=== PATIENT | male | born 1965 | race Two or more races ===

== ENCOUNTER 2016-09-19 21:55 | Inpatient (IN) | payer OTHER ==
--- NOTE | ~2016-09-19 | DS ---
Unit #: [id number] #: [id number] Patient: SHONA MEJIA [id number] [address] [address] [id number] I MR#: [id number] NAME: SHONA MEJIA ROOM: 229 Age: 51 Sex: M Admission Date: 09/20/2016 : 1965 Discharge Date: 09/21/2016 Attending Physician: Sigifredo España M.D. Primary Care Physician: No Primary Care Physician DISCHARGE SUMMARY DISCHARGE DIAGNOSES 1. Escherichia coli urinary tract infection sensitive to cephalosporin. 2. Sepsis present on admission secondary to the urinary tract infection. 3. Remote cerebrovascular accident with no focal deficits. 4. Resolved hyponatremia and hypokalemia. 5. Tobacco usage. 6. Gross hematuria. I am recommending that he follow this up outpatient. PROCEDURES None. DIAGNOSTIC STUDIES IMAGING: Consists of CT abdomen and pelvis with impression: CT findings suspicious for cystitis. Not mentioned in the body of the report, there is subtle thickening and enhancement of the right renal pelvis and proximal right ureter urothelium. Findings may represent changes of pyelitis and ureteritis. No obstructing abnormality is seen. Bilateral renal cysts. Small hepatic cysts. Trace right pleural effusion. Normal appendix. LABORATORY: Labs include BMP: Glucose 114, BUN 11, creatinine 0.6, sodium 145, potassium 4, chloride 107, CO2 27, and calcium 8.7. CBC: WBC 7. RBC 3.78, hemoglobin 11.6, hematocrit 34.7, MCV is 91.8, MCH is 30.6, MCHC 33.3, RDW is 12.4, platelets are 201, and MPV is 9.6. HOSPITAL COURSE Patient is a pleasant 51-year-old, Yakut-speaking only male with past medical history of remote CVA as well as tobacco usage who presented to the emergency department with 4-day symptoms of nausea, vomiting, and right lower quadrant pain and headache. He has been experiencing dysuria, frequency, and a small amount of hematuria as well. Presented to the emergency department the evening prior to admission with fever. Urinalysis revealed significant hematuria and pyuria. Therefore, a CT scan was performed consistent with cystitis, but also had some subtle thickening of the right renal pelvis and proximal right ureter consistent with pyelonephritis. In the emergency department, he was treated with Tylenol and Rocephin, bolused with IV fluids, given Zofran and morphine, and had noted a change in his urinary stream, but still had difficulty voiding. He was treated for UTI with sepsis with fever and tachycardia. The following day, he was seen. He still had symptoms of dysuria. Flomax was started and the morning after that tells me that all of his urinary symptoms are fine. He denies any abdominal pain. Had resolved nausea and vomiting and he was ready to be discharged home. With regards to his gross hematuria, we did not check a BPA. I recommend that patient do this Unit #: [id number] #: [id number] Patient: SHONA MEJIA outpatient. I am discharging him with a month's worth of Flomax to be continued at followup if needed and his urine culture did grow E. coli sensitive to cephalosporin. Will be discharging him with Omnicef 300 mg orally twice daily for the next 5 days. DISCHARGE CONDITION Stable. DISCHARGE INSTRUCTIONS 1. I am giving him a card for Dr. Georges due to his no PCP state at this time and instructed him that he could follow up with him on [facility] before 2 o'clock as a walk-in appointment. 2. Discharge diet: Resume a heart healthy diet. 3. Stressed cessation from tobacco. 4. Resume activities as prior to hospitalization with ambulating every day. DISCHARGE MEDICATIONS Consist of: 1. Flomax 0.4 mg orally at bedtime. Prescription for 30 days was given. 2. Omnicef 300 mg orally twice daily for the next 5 days. Dictated by... Judy Jefferson PA-C for Jona Carter/radha TD: 09/22/2016 05:32 JOB #: [id number] Katie Georges MD -- [facility] DISCHARGE SUMMARY X X DISCHARGE SUMMARY
--- NOTE | ~2016-09-19 | CT2 ---
[facility] A Service of [facility] RADIOLOGY TEXT RESULTS PATIENT: SHONA MEJIA LOCATION: [facility] : [birth year] UNIT #: [id number] AGE: [address]: Sigifredo España MD SEX: M ORDER DR: [id number] [facility]. [place], [place] [address] [id number] MR#: [id number] Acc #: [id number] NAME: SHONA MEJIA : 1965 SEX: M STUDY DATE/TIME: 09/19/2016 22:09 UNIT: [facility] ROOM: 229 STUDY DESCRIPTION: CT Abd and Pelv W Cont Attending Physician: Sigifredo España M.D. Ordering Physician: Justice Mcclain M.D. Primary Care Physician: Primary Care Physician No MEDICAL IMAGING REPORT This report is preliminary unless electronic signature is present EXAM CT abdomen and pelvis with contrast 09/19/2016 HISTORY 51-year-old male, bleeding, dysuria for 4 days. Hernia. Previous transient ischemic attack. COMPARISON None. TECHNIQUE This CT examination was performed with one or more of the following radiation dose reduction techniques: automatic exposure control, adjustment of mA and/or kV according to patient size, and iterative reconstruction. PROCEDURE 5 mm noncontrast axial images through the abdomen and pelvis. Enteric contrast was not administered. FINDINGS ABDOMEN: Trace right pleural effusion is present. No basilar consolidations are seen. 2 low-density lesions in the left hepatic lobe are nonspecific but favored to represent cysts. Bilateral renal cysts are present. The adrenals, spleen, pancreas and gallbladder are within normal limits. Limited evaluation of bowel due to lack of enteric contrast but no focal bowel wall thickening or inflammation is seen. The appendix is normal. PELVIS: There is very mild concentric urinary bladder wall thickening raising the possibility of cystitis. Subtle perivesical fat stranding is thought to be present, as well. Coarse calcifications are seen within the prostate gland without significant prostatic enlargement. No pelvic [facility] A Service [facility] RADIOLOGY TEXT RESULTS PATIENT: SHONA MEJIA [id number] : [birth year] UNIT #: [id number] AGE: [address]: Sigifredo España MD SEX: M ORDER DR: adenopathy or free fluid is seen. IMPRESSION 1. CT findings suspicious for cystitis. 2. Not mentioned in the body of the report, there is subtle thickening and enhancement of the right renal pelvis and proximal right ureter urothelium. Findings may represent changes of pyelitis and ureteritis. No obstructing abnormality is seen. 3. Bilateral renal cysts. Small hepatic cysts. 4. Trace right pleural effusion. 5. Normal appendix. Dictated by... Alison Castaneda M.D. THIS IS AN ELECTRONICALLY VERIFIED REPORT Alison Castaneda M.D. at 09/20/2016 2:09 PM WESLEY/krysten TD: 09/20/2016 10:02 JOB #: [id number] MEDICAL IMAGING REPORT COPY
--- NOTE | ~2016-09-19 | HP ---
Unit #: [id number] #: [id number] Patient: SHONA MEJIA [id number] [address] [place], [place] [address] [id number] I MR#: [id number] NAME: SHONA MEJIA ROOM: 229 Age: 51 Sex: M Admission Date: 09/20/2016 : 1965 Attending Physician: Jazzmine Sabillon M.D. Primary Care Physician: No Primary Care Physician HISTORY AND PHYSICAL CHIEF COMPLAINT Pyelonephritis with nausea and vomiting. HISTORY This pleasant 51-year-old male with possible remote CVA, is admitted for pyelonephritis. The patient was well until four days prior to admission when he developed nausea, vomiting, fever, right lower quadrant pain, headache. He has been experiencing dysuria, frequency, and a small amount of hematuria as well. Presented to this emergency department last evening with a fever. Urinalysis revealed significant hematuria and pyuria. Therefore, a CT scan was performed consistent with cystitis but also had some subtle thickening of the right renal pelvis and proximal right ureter consistent with pyelonephritis. In the ER, he was treated with Tylenol, Rocephin, bolused with IV fluids, given Zofran and morphine. Does note a change in his urinary stream and difficulty voiding recently. PAST MEDICAL HISTORY Possible CVA with some transient short term memory issues, now resolved. ALLERGIES None. HOME MEDICATIONS None. FAMILY HISTORY Negative for kidney disease. SOCIAL HISTORY The patient is originally from [facility], living with his and family. He smokes one half pack per day of tobacco but hasn't smoked for the past four days. Does not drink alcohol. REVIEW OF SYSTEMS Notable for a small amount of hematuria, dysuria, urinary voiding problems, headache, fever, nausea, vomiting, right lower quadrant discomfort, questionable previous CVA. All other systems were reviewed and are negative. PHYSICAL EXAMINATION GENERAL APPEARANCE: Pleasant, thin, 51-year-old male, currently in no acute distress. Unit #: [id number] #: [id number] Patient: SHONA MEJIA VITAL SIGNS: Temperature 101.8, pulse 112, respirations 16, blood pressure 116/70. O2 saturation is 100% on room air. HEENT: Eyes PERRLA. Extraocular muscles are intact. Pharynx is benign. NECK: Supple without adenopathy or thyromegaly. CHEST: Clear. Right CVA percussion tenderness noted. CARDIAC: Normal S1 and S2 without S3, S4 or murmur. ABDOMEN: Bowel sounds are present. The patient has suprapubic tenderness, and right lower quadrant tenderness without rebound or guarding. No hepatosplenomegaly or masses. EXTREMITIES: Without clubbing, cyanosis or edema. Pedal pulses are present. No splinter hemorrhages noted over the fingernail beds. NEUROLOGIC EXAM: The patient is awake, alert, oriented. Cranial nerves are intact. Equal strength throughout. DIAGNOSTIC STUDIES LABORATORY: Admission labs - hematocrit 37, normal white count and platelet count. SMA-12 - sodium 133, potassium 3.4, chloride is 98, albumin is 3, alkaline phos. 98. Normal lipase and lactic acid. Urinalysis - positive leukocyte esterase, nitrates, protein, 3+ blood with 100 to 200 red cells, innumerable white cells, 4+ bacteria. IMAGING: CT scan consistent with cystitis and pyelonephritis. Renal and hepatic cysts noted. ASSESSMENT 1. Pyelonephritis with nausea and vomiting. 2. Mild hyponatremia and hypokalemia. 3. Prior cerebrovascular accident without residual symptoms. 4. Tobacco use. PLANS 1. Rocephin, one dose of vancomycin pending cultures. 2. IV fluids. 3. Check postvoid bladder scan and start Flomax. 4. SCDs for DVT prophylaxis. 5. Repeat labs in the morning. Dictated by Jazzmine Sabillon M.D. AML/df TD: 09/20/2016 05:22 JOB #: [id number] Unit #: [id number] #: [id number] Patient: STORADHA,AFRIM HISTORY AND PHYSICAL X Jazzmine Sabillon MD X HISTORY AND PHYSICAL
[2016-09-19 18:02] LABS: URINE SOURCE CLEAN CATCH
[2016-09-19 18:05] LABS: URINE APPEARANCE TURBID; URINE BILIRUBIN NEG (NEG); URINE BLOOD 3+ (NEG); URINE COLOR YELLOW; URINE GLUCOSE NEG (NEG); URINE KETONE NEG (NEG); URINE LEUKOCYTE ESTERASE 3+ (NEG); URINE NITRATE POS (NEG); URINE PH 5.5 (5-8); URINE PROTEIN 2+ (NEG); URINE SPECIFIC GRAVITY 1.019 (1.003-1.035)
[2016-09-19 18:07] LABS: CULTURE INDICATED? YES; URBCS1 AUWI 100-200 /[HPF] (0-2); URINE BACTERIA AUWI 4+ (NEGATIVE); URINE SQUAMOUS EPITHELIAL CELL NONE SEEN /[HPF]; UWBCS1 AUWI INNUM (0-5)
[2016-09-19 20:17] LABS: BASOPHIL% 0.4 % (0-2.5); EOSINOPHIL# 0.1 X10e3 (0-0.7); EOSINOPHIL% 0.9 % (0.0-7.0); HEMOGLOBIN 12.7 gm/dL (13.0-16.0); LYMPHOCYTE# 1.7 X10e3 (1.0-3.5); LYMPHOCYTE% 19.3 % (17.0-45.0); MEAN CELL VOLUME 89.9 FL (83-96); MEAN CORPUSCULAR HEMOGLOBIN 30.8 PG (28-34); MEAN CORPUSCULAR HGB CONC 34.3 g/dL (30-36); MEAN PLATELET VOLUME 9.1 FL (6.5-11.5); MONOCYTE# 1.5 X10e3 (0-1.0); MONOCYTE% 17.3 % (3.0-12.0); NEUTROPHIL# 5.5 X10e3 (1.5-7.1); NEUTROPHIL% 62.1 % (40-75); PLATELET COUNT 186 X10e3 (140-420); RED BLOOD COUNT 4.11 X10e (3.90-5.60); RED CELL DISTRIBUTION WIDTH 12.3 % (11.0-15.5); WHITE BLOOD COUNT 8.9 X10e3 (4.0-10.5)
[2016-09-19 20:19] LABS: DIFF IND NO
[2016-09-19 20:46] LABS: ALKALINE PHOSPHATASE 98 U/L (32-92); ALT (SGPT) 25 U/L (10-40); AMYLASE 17 U/L (0-46); AST (SGOT) 27 U/L (10-42); BILIRUBIN, DIRECT 0.1 mg/dL (0.0-0.2); BILIRUBIN,INDIRECT 0.5 mg/dL (0.0-0.9); BILIRUBIN,TOTAL 0.6 mg/dL (0.2-2.0); BLOOD UREA NITROGEN 13 mg/dL (9-23); BUN/CREATININE RATIO 18.57; CALCIUM SERUM 8.4 mg/dL (8.4-10.2); CARBON DIOXIDE 25 mmol/L (22-31); CHLORIDE 98 mmol/L (100-111); CREATININE SERUM 0.7 mg/dL (0.6-1.4); GLOM FILT RATE Estimated ABOVE60 mL/min (>60); GLUCOSE FASTING 108 mg/dL (70-110); LIPASE 16 U/L (22-51); POTASSIUM 3.4 mmol/L (3.5-5.1); PROTEIN TOTAL SERUM 6.7 g/dL (6.0-8.3); SODIUM 133 mmol/L (135-145)
[2016-09-20 06:47] LABS: BASOPHIL% 0.5 % (0-2.5); EOSINOPHIL# 0.3 X10e3 (0-0.7); EOSINOPHIL% 3.4 % (0.0-7.0); HEMATOCRIT 34.6 % (38.0-50.0); HEMOGLOBIN 11.7 gm/dL (13.0-16.0); LYMPHOCYTE# 1.5 X10e3 (1.0-3.5); LYMPHOCYTE% 17.7 % (17.0-45.0); MEAN CELL VOLUME 90.9 FL (83-96); MEAN CORPUSCULAR HEMOGLOBIN 30.8 PG (28-34); MEAN CORPUSCULAR HGB CONC 33.8 g/dL (30-36); MEAN PLATELET VOLUME 8.8 FL (6.5-11.5); MONOCYTE# 1.6 X10e3 (0-1.0); MONOCYTE% 19.8 % (3.0-12.0); NEUTROPHIL# 4.8 X10e3 (1.5-7.1); NEUTROPHIL% 58.6 % (40-75); PLATELET COUNT 179 X10e3 (140-420); RED BLOOD COUNT 3.81 X10e (3.90-5.60); RED CELL DISTRIBUTION WIDTH 12.6 % (11.0-15.5); WHITE BLOOD COUNT 8.2 X10e3 (4.0-10.5)
[2016-09-20 06:51] LABS: DIFF IND NO
[2016-09-20 07:12] LABS: BLOOD UREA NITROGEN 12 mg/dL (9-23); CALCIUM SERUM 8.1 mg/dL (8.4-10.2); CARBON DIOXIDE 26 mmol/L (22-31); CHLORIDE 105 mmol/L (100-111); CREATININE SERUM 0.8 mg/dL (0.6-1.4); GLOM FILT RATE Estimated ABOVE60 mL/min (>60); GLUCOSE FASTING 101 mg/dL (70-110); POTASSIUM 4.1 mmol/L (3.5-5.1); SODIUM 138 mmol/L (135-145)
[2016-09-21 07:02] LABS: HEMATOCRIT 34.7 % (38.0-50.0); HEMOGLOBIN 11.6 gm/dL (13.0-16.0); MEAN CELL VOLUME 91.8 FL (83-96); MEAN CORPUSCULAR HEMOGLOBIN 30.6 PG (28-34); MEAN CORPUSCULAR HGB CONC 33.3 g/dL (30-36); MEAN PLATELET VOLUME 9.6 FL (6.5-11.5); RED BLOOD COUNT 3.78 X10e (3.90-5.60); RED CELL DISTRIBUTION WIDTH 12.4 % (11.0-15.5)
[2016-09-21 07:43] LABS: BLOOD UREA NITROGEN 11 mg/dL (9-23); BUN/CREATININE RATIO 18.33; CALCIUM SERUM 8.7 mg/dL (8.4-10.2); CARBON DIOXIDE 27 mmol/L (22-31); CHLORIDE 107 mmol/L (100-111); CREATININE SERUM 0.6 mg/dL (0.6-1.4); GLOM FILT RATE Estimated ABOVE60 mL/min (>60); GLUCOSE FASTING 114 mg/dL (70-110); SODIUM 145 mmol/L (135-145)
[2016-09-21] MEDS ORDERED: FLOMAX0.4 M1 PO (09:28)
[2016-09-21] MEDS ORDERED: OMNICEF300 M1 PO (09:29)
== END 2016-09-21 10:43 | disposition home or self-care (01) | DRG 872 ==
LOC: CED 21:55 → CEDOF 09-20 00:25 → C2A 09-20 02:51
PROVIDERS: Emergency Medicine; Internal Medicine; Physician Assistant Medical
DX: A41.51 Sepsis due to Escherichia coli [E. coli] (principal); E87.1 Hypo-osmolality and hyponatremia; N12 Tubulo-interstitial nephritis, not specified as acute or chronic; Z16.19 Resistance to other specified beta lactam antibiotics; E87.6 Hypokalemia; R31.0 Gross hematuria; F17.210 Nicotine dependence, cigarettes, uncomplicated; Z86.73 Personal history of transient ischemic attack (TIA), and cerebral infarction without residual deficits
CPT/HCPCS: 36415; 74177; 80048; 80076; 81003; 82150; 83605; 83690; 85025; 85027; 87040; 87086; 87088; 87186; 99285; J0696; J2270; J2405; J3370; Q9967